=== PATIENT | male | born 1965 | race Caucasian/White ===

== ENCOUNTER 2016-09-23 00:29 | Inpatient (IN) | payer OTHER ==
--- NOTE | ~2016-09-23 | PN ---
Unit #: [id number] #: [id number] Patient: GOLDEN MORALES [id number] [facility] [address] [place] [address] [id number] MR#: [id number] NAME: GOLDEN MORALES ROOM: P203 Age: 50 Sex: M Admission Date: 09/23/2016 : 1965 Attending Physician: Clarisa Frausto M.D. Admitting Physician: Clarisa Frausto M.D. Primary Care Physician: Generic Doctor Not In System [facility] PROGRESS NOTES DATE 09/24/2016 DISCUSSION Mr. Morales is a 50-year-old, white male who was seen today and chart was reviewed and case was discussed with the staff. He was seen to be anxious, withdrawn, unkempt, disheveled, disorganized and seclusive to himself and expressing persistent depression and anxiety though medications were just started yesterday which has been taking it without tolerability issues. MENTAL STATUS EXAM Middle-aged white male who was casually dressed with marginal personal hygiene, appears to be in no acute distress or discomfort. He was awake and alert with impaired attention and concentration. His mood was anxious with a cognitive affect. His speech was slow and restricted in content. His thought processes were disorganized with some looseness of associations. His judgement and insight remains significantly impaired. TREATMENT PLAN 1. We will continue him on his current medications and treatment protocol. We will monitor his response to the medication and make further adjustments as needed. 2. We will continue to follow up. Dictated by... Steffanie Lucio/hieu TD: 09/26/2016 05:23 JOB #: [id number] Unit #: [id number] #: [id number] Patient: GOLDEN MORALES PROGRESS NOTES Page 1 of 1 X Clarisa Frausto MD PROGRESS NOTE
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
--- NOTE | ~2016-09-23 | PN ---
Unit #: [id number] #: [id number] Patient: GOLDEN MORALES [id number] [facility] [address] [place] [address] [id number] I MR#: [id number] NAME: GOLDEN MORALES ROOM: P203 Age: 50 Sex: M Admission Date: 09/23/2016 : 1965 Attending Physician: Clarisa Frausto M.D. Admitting Physician: Clarisa Frausto M.D. Primary Care Physician: Generic Doctor Not In System [facility] PROGRESS NOTES DATE 09/26/2016 DISCUSSION Mr. Morales is a 50-year-old white male who was seen today and chart was reviewed and case was discussed with the staff. He has been anxious, withdrawn and rather seclusive to himself. Meanwhile, he has been cooperative with treatment recommendations and has been taking medications and tolerating them fairly well. MENTAL STATUS EXAMINATION Middle-aged white male who was casually dressed with fair personal hygiene and appears to be in no acute distress or discomfort. He was awake and alert on interaction with intact orientation. His mood was anxious with congruent affect. He denies any suicidal or homicidal ideations. His insight and judgement remains slightly impaired. TREATMENT PLAN 1. Will continue on his current medications and treatment protocol. Will monitor his response to the medications and make further adjustments as needed. 2. Will continue to follow up. Dictated by... Steffanie Lucio/alen TD: 09/27/2016 18:42 JOB #: [id number] Unit #: [id number] #: [id number] Patient: GOLDEN MORALES PROGRESS NOTES Page 1 of 1 X Clarisa Frausto MD PROGRESS NOTE
--- NOTE | ~2016-09-23 | DS ---
Unit #: [id number] #: [id number] Patient: [facility]OLD[facility]ORALES [id number] [facility] [address] [place] [address] [id number] I MR#: [id number] NAME: GOLDEN MORALES ROOM: [facility] Age: 51 Sex: M Admission Date: 09/12/2016 : 1965 Discharge Date: 09/26/2016 Attending Physician: Clarisa Frausto M.D. Primary Care Physician: Generic Doctor Not In System DISCHARGE SUMMARY IDENTIFYING DATA Mr. Morales is a 50-year-old white male who was self-referred to the hospital. DISCHARGE DIAGNOSES Psychiatric: Major depressive disorder, recurrent, moderate, without psychotic features. Medical: Hypertension, dyslipidemia. Stressors: Moderate psychosocial stressors. HISTORY OF PRESENT ILLNESS Please see initial psychiatric evaluation for details. PAST PSYCHIATRIC HISTORY Please see initial psychiatric evaluation for details. PAST MEDICAL HISTORY Please see initial psychiatric evaluation for details. HOSPITAL COURSE The patient was admitted to the adult psychiatric unit at [facility] t[facility] and was oriented to the hospital environment. Routine p.r.n. medications were initiated. He was started back on his home medications including his Wellbutrin and Seroquel, and was closely monitored. He was taking the medications regularly and was tolerating them fairly well and was able to show descent and therapeutic response with improvement in depressed and anxiety as such, it was decided that he will be discharged home and will continue treatment on an outpatient basis. DISCHARGE CONDITION Stable. PROGNOSIS Fair. Dictated by... Steffanie Lucio/toñitol TD: 10/25/2016 13:56 JOB #: [id number] Unit #: [id number] #: [id number] Patient: GOLDEN MORALES DISCHARGE SUMMARY Page 1 of 1 X Clarisa Frausto MD X DISCHARGE SUMMARY
--- NOTE | ~2016-09-23 | PA ---
Unit #: [id number] #: [id number] Patient: GOLDEN MORALES [id number] [facility] [address] [place] [address] [id number] I MR#: [id number] NAME: GOLDEN MORALES ROOM: P203 Age: 50 Sex: M Admission Date: 09/23/2016 : 1965 Date of Assessment: 09/23/2016 Attending Physician: Clarisa Frausto M.D. Admitting Physician: Clarisa Frausto M.D. Primary Care Physician: Generic Doctor Not In System PSYCHIATRIC ASSESSMENT DATE OF SERVICE 09/23/2016. IDENTIFYING DATA Mr. Morales is a 50-year-old single white male, who is a resident of [place], [place], and is known to us from previous encounter and was active under my care a couple of months ago and was discharged and was now brought back to the hospital on a voluntary basis. CHIEF COMPLAINT "I saw some strange things earlier today and I called the police." HISTORY OF PRESENT ILLNESS Mr. Morales is a 50-year-old white male with history of bipolar disorder and psychosis, who apparently called the police reporting having suicidal ideation and that he has been seeing some strange things at his residence earlier today and reports that he and his were 3 months ago and he has not been doing well since his son killed himself 2 years ago and reports that he has limited social support system and he feels that people are out to get him and endorses feelings of hopelessness and helplessness and having suicidal ideation with a plan to "run into traffic." He also reports that he has unresolved grief and loss issues. On evaluation by me, the patient reports that he got out of the hospital and was doing fine and was taking his medication and medication ran out a month later and he did not have any followup appointment, so he got off the medications even though he stated that the medications were helping him and reports that since then he has been decompensating and reports increasing depression and anxiety with multiple psychosocial issues and stressors leading to feelings of hopelessness and helplessness and suicidal ideations with an intent and plan as well as significant paranoid ideations and visual hallucinations and as such, a recommendation for inpatient level of care for safety and stabilization were made. SUBSTANCE ABUSE HISTORY The patient reports drinking alcohol up to a couple of 6 packs a day, but reports that he has not had any alcohol in the last 5 years. PAST PSYCHIATRIC HISTORY The patient has had a history of inpatient psychiatric hospitalization at [facility] along with outpatient treatment at [facility] and has been diagnosed and treated for mood disorder, and review of the medical records indicate that he is supposed to be on a combination of Wellbutrin, Seroquel, BuSpar, and Vistaril, but has not been compliant with the Unit #: [id number] #: [id number] Patient: GOLDEN MORALES medication and as such, has been decompensating. PAST MEDICAL HISTORY Hypertension and dyslipidemia. ALLERGIES Ketorolac. PERSONAL AND SOCIAL HISTORY A 50-year-old white male, who reports that he is single, unemployed, and lives by himself and has poor social support system. MENTAL STATUS EXAMINATION Middle-aged white male, who was casually dressed with a fair personal hygiene, appears to be in no acute distress or discomfort. He was awake and alert on interaction with intact orientation to time, place, and person. His mood was anxious and depressed with a congruent affect. His speech was slow and restricted in content. His thought processes were disorganized with some looseness of associations and flight of ideas and suicidal ideations and auditory and visual hallucinations with paranoid ideations. His insight and judgment remain significantly impaired. DIAGNOSTIC IMPRESSION Psychiatric: Bipolar disorder, most recent episode depressed, recurrent, moderate, with psychosis. Medical: Hypertension and dyslipidemia. Stressors: Moderate psychosocial stressors. TREATMENT PLAN 1. The patient has presented with a history of substance abuse and mood disorder and has been decompensating and will need inpatient hospitalization for safety and stabilization. We will start him back on his home medications and we will adjust the medications and monitor response. 2. Supportive therapy was provided to the patient. 3. Safe, structured, and nourishing environment will be provided. ESTIMATED LENGTH OF STAY 5 to 7 days. ABILITY TO HELP SELF Limited. WILLINGNESS TO HELP SELF The patient appears to be willing to help self. STRENGTHS 1. Communicative. 2. Cooperative. PROBLEMS 1. Chronic dysphoric symptoms. 2. Poor social support system. DISCHARGE CRITERIA This will be contingent upon the patient's ability to show resolution of his depression and anxiety and his ability to stay safe to himself, particularly after discharge from the hospital. Unit #: [id number] #: [id number] Patient: GOLDEN MORALES Dictated by... Steffanie Lucio/claribel TD: 09/23/2016 13:03 JOB #: [id number] PSYCHIATRIC ASSESSMENT Page 1 of 1 X Clarisa Frausto MD PSYCHIATRIC ASSESSMENT
--- NOTE | ~2016-09-23 | PN ---
Unit #: [id number] #: [id number] Patient: GOLDEN MORALES [id number] [facility] [address] [place] [address] [id number] I MR#: [id number] NAME: GOLDEN MORALES ROOM: [facility] Age: 50 Sex: M Admission Date: 09/23/2016 : 1965 Attending Physician: Clarisa Frausto M.D. Admitting Physician: Clarisa Frausto M.D. Primary Care Physician: Generic Doctor Not In System [facility] PROGRESS NOTES DATE OF SERVICE 09/25/2016 DISCUSSION Mr. Morales is a 50-year-old white male with mood disorder who was seen today. Chart was reviewed and case was discussed with the staff. He has been anxious, withdrawn, and rather seclusive to himself. Meanwhile, he has been cooperative with the treatment recommendations as he has been taking the medications and tolerating them fairly well with no reported side effects. MENTAL STATUS EXAMINATION Middle-aged white male who is casually dressed with fair personal hygiene and appears to be in no acute distress or discomfort. He patient was awake and alert on interaction with impaired attention and concentration. His mood is anxious with a congruent affect. He denies any suicidal or homicidal ideations and also denies any auditory or visual hallucinations. His insight and judgment remain slightly impaired. TREATMENT PLAN 1. We will continue him on his current medications and treatment protocol. We will monitor his response and make further adjustments as needed. 2. We will continue to follow up. Dictated by... Clarisa Frausto M.D. IAA/concepciong TD: 09/26/2016 10:39 JOB #: [id number] Unit #: [id number] #: [id number] Patient: GOLDEN MORALES PROGRESS NOTES Page 1 of 1 X Clarisa Frausto MD PROGRESS NOTE
[~2016-09-23 00:29] MED LIST: ALBUTEROL17 GM INH; AZITHROMYCIN250 MG PO; IBUPROFEN800 MG PO; LIPITOR PO; NEURONTIN PO; PEN-VEE K PO; ROBITUSSIN COU118 M2 PO; SYNTHROID PO; TUSSINEX PO; VICODIN 5/500 T1 TAB PO
[2016-09-23 11:44] LABS: URINE APPEARANCE CLEAR; URINE BILIRUBIN NEG (NEG); URINE BLOOD 1+ (NEG); URINE COLOR YELLOW; URINE GLUCOSE NEG (NEG); URINE KETONE NEG (NEG); URINE LEUKOCYTE ESTERASE NEG (NEG); URINE NITRATE NEG (NEG); URINE PROTEIN NEG (NEG); URINE SPECIFIC GRAVITY 1.018 (1.003-1.035)
[2016-09-23 11:47] LABS: U HYALINE CASTS AUWI 0-2 /[LPF]; URINE BACTERIA AUWI NEG (NEGATIVE); URINE SQUAMOUS EPITHELIAL CELL NONE SEEN /[HPF]; UWBCS1 AUWI 0-2 (0-5)
[2016-09-23 12:03] LABS: AMPHETAMINE POS (NEG); BARBITURATES NEG (NEG); BENZODIAZEPINES NEG (NEG); COCAINE NEG (NEG); MARIJUANA NEG (NEG); OPIATES NEG (NEG); TRICYCLIC ANTIDEPRESSANTS NEG (NEG); U METHADONE NEG (NEG)
[2016-09-24 09:27] LABS: BASOPHIL# 0.1 X10e3 (0-0.3); BASOPHIL% 0.9 % (0-2.5); EOSINOPHIL# 0.2 X10e3 (0-0.7); EOSINOPHIL% 3.7 % (0.0-7.0); HEMATOCRIT 43.6 % (38.0-50.0); HEMOGLOBIN 14.6 gm/dL (13.0-16.0); LYMPHOCYTE% 33.8 % (17.0-45.0); MEAN CELL VOLUME 90.7 FL (83-96); MEAN CORPUSCULAR HEMOGLOBIN 30.4 PG (28-34); MEAN CORPUSCULAR HGB CONC 33.6 g/dL (30-36); MEAN PLATELET VOLUME 7.8 FL (6.5-11.5); MONOCYTE# 0.6 X10e3 (0-1.0); MONOCYTE% 10.6 % (3.0-12.0); PLATELET COUNT 165 X10e3 (140-420); RED CELL DISTRIBUTION WIDTH 14.2 % (11.0-15.5); WHITE BLOOD COUNT 5.8 X10e3 (4.0-10.5)
[2016-09-24 09:42] LABS: THYROID STIMULATING HORMONE 0.53 uIU/ml (0.34-5.60)
[2016-09-24 09:44] LABS: DIFF IND NO
[2016-09-24 09:45] LABS: ALBUMIN SERUM 3.8 g/dL (3.5-5.0); BILIRUBIN,TOTAL 0.6 mg/dL (0.2-2.0); BUN/CREATININE RATIO 24.54; CALCIUM SERUM 8.9 mg/dL (8.4-10.2); CREATININE SERUM 1.1 mg/dL (0.6-1.4); GLOM FILT RATE Estimated 78.4 mL/min (>60); POTASSIUM 4.7 mmol/L (3.5-5.1); PROTEIN TOTAL SERUM 6.7 g/dL (6.0-8.3)
[2016-09-24 09:49] LABS: FREE THYROXIN (T4) 0.99 ng/dL (0.58-1.64)
== END 2016-09-26 14:10 | DRG 885 ==
LOC: P2S 00:29
PROVIDERS: Psychiatry & Neurology Psychiatry
DX: F31.5 Bipolar disorder, current episode depressed, severe, with psychotic features (principal); R45.851 Suicidal ideations; I10 Essential (primary) hypertension; E78.5 Hyperlipidemia, unspecified; F17.210 Nicotine dependence, cigarettes, uncomplicated
CPT/HCPCS: 80053; 80307; 81003; 84439; 84443; 85025